=== PATIENT | female | born 1980 | race Caucasian/White ===

== ENCOUNTER 2016-06-08 16:00 | Emergency (ER) | payer OTHER, MEDICARE ==
[~2016-06-08] VITALS: Ht 170.2 cm; Wt 65.3 kg
--- NOTE | 2016-06-08 16:56 | ED GI/GU/ABDOMINAL COMPLAINT ---
History of Present Illness General Chief Complaint: Abdominal Pain/Flank Pain Stated Complaint: ABD, V/N Source: patient Exam Limitations: no limitations Vital Signs & Intake/Output Vital Signs & Intake/Output Vital Signs Date Time Temp Pulse Resp B/P Pulse O2 O2 Flow FiO2 Ox Delivery Rate 06/09 2023 97.6 75 18 101/62 100 Room Air 06/08 1828 Room Air 06/08 1813 97.5 78 16 105/74 96 Room Air 06/08 1607 98.7 96 16 110/72 96 Room Air Allergies Coded Allergies: sumatriptan (From IMITREX) (ANAPHYLAXIS 06/08/16) Reconcile Medications Carisoprodol 350 MG TABLET 1 TAB PO BIDP PRN MUSCLE RELAXER (Reported) Clonazepam 1 MG TABLET 1 TAB PO 4XDP PRN ANXIETY (Reported) Diclofenac Sodium (Voltaren) 1 % GEL..GRAM. 1 MEI TOP PRN PAIN (Reported) apply to affected area(s) Ergocalciferol (Vitamin D2) (Vitamin D2) 50,000 UNIT CAPSULE 1 CAP PO QSUN SUPPLEMENT (Reported) Ketorolac Tromethamine 10 MG TABLET 1 TAB PO TID PRN PAIN Ondansetron HCl (Zofran) 4 MG TABLET 1 TAB PO Q6-8P PRN NAUSEA Oxycodone HCl/Acetaminophen (Oxycodon-Acetaminophen 2.5-325) 2.5 MG-325 MG TABLET 1-2 TAB PO Q6H PRN PAIN (Reported) Tramadol HCl 50 MG TABLET 1-2 TAB PO PRN PAIN (Reported) Triage Note: PT STATES SHE IS HAVING RIGHT SIDED LOWER ABD PAIN FOR THE PAST FEW DAYS. PT REPORTS VOMITING STATES SHE HAS PRESSURE IN HER STOMACH. Triage Nurses Notes Reviewed? yes ? N Is pt currently ? No Onset: Gradual Duration: constant Timing: recent history Quality/Severity: sharpness, severe, stabbing Severity Numbers: 8 Location: periumbilical Radiation: no radiation Activities at Onset: none HPI: Patient is a 38-year-old female with past medical history of CVA, brain tumor with craniectomy and chronic headaches and pain AND OVARIAN CYSTS currently on maintenance medications of narcotics who presents emergency room with a 2 day history of gradual onset of periumbilical sharp stabbing severe abdominal pain Patient states that yesterday she was intolerant of by mouth where she had a few episodes of nonbloody nonbilious emesis. Patient was able today to tolerate by mouth liquids however. Denies any fever chills chest pain back pain vaginal bleeding vaginal discharge dysuria and hematuria Last MENSTRAUL PERIOD Was 7 days ago (NAMRATA HAINES) Past History Travel History Traveled to [place] past 21 day No Medical History Any Pertinent Medical History? see below for history Neurological: CVA Renal: UTI Cancer(s): BRAIN TUMORS X3 Surgical History Surgical History: cholecystectomy, LAPAROSCOPIC OVARIAN CYST REMOVAL Psychosocial History What is your primary language Paraguayan Tobacco Use: Current Daily Use Daily Tobacco Use Amount/Type: => 5 Cigarettes daily ETOH Use: denies use Illicit Drug Use: denies illicit drug use Family History Hx Contributory? No (NAMRATA HAINES) Review of Systems Review of Systems Constitutional: Reports: no symptoms. EENTM: Reports: no symptoms. Respiratory: Reports: no symptoms. Cardiovascular: Reports: no symptoms. GI: Reports: see HPI, abdominal pain, nausea. Genitourinary: Reports: no symptoms. Musculoskeletal: Reports: no symptoms. Skin: Reports: no symptoms. Neurological/Psychological: Reports: no symptoms. Hematologic/Endocrine: Reports: no symptoms. Immunologic/Allergic: Reports: no symptoms. All Other Systems: Reviewed and Negative (NAMRATA HAINES) Physical Exam Physical Exam General Appearance: mild distress Gastrointestinal: normal bowel sounds, soft, MODERATE PERIUMBILICAL AND RIGHT LOWER QUADRANT POINT TENDERNESS Comments: HEENT: Normal EENT exam, Neck: Supple, no lymphadenopathy, normal range of motion without pain or tenderness Back: Nontender, no CVA tenderness. Cardiovascular: Regular rate and rhythms no murmurs rubs or gallops, normal JVP Respiratory: Chest nontender. No respiratory distress.breath sounds clear to auscultation bilaterally Extremity: No edema, no calf tenderness to palpation, normal and equal pulses. Neuro: Alert oriented x3, motor sensory normal, Skin: No appreciable rash on exposed skin, skin is warm and dry. Psych: Mood and affect is normal, memory and judgment is normal. Core Measures ACS in differential dx? No Severe Sepsis Present: No Septic Shock Present: No (NAMRATA HAINES) Progress Differential Diagnosis: AAA, AMI, appendicitis, biliary colic, bowel obstruction , colon cancer, cholecystitis, diverticulitis, ectopic , endometritis, esophageal varices, gastritis, hepatitis, hernia, hemorrhoids, ischemic bowel, inflamm bowel dis, intrauterine , kidney stone, [place] tear, ovarian cyst, ovarian torsion, pancreatitis, PID/cervicitis, peptic ulcer, PUD/ GERD, perforated viscous, SBO, threatened AB, UTI/pyelo Plan of Care: Orders Procedure Date/time Status URINE 06/08 1704 Complete URINALYSIS 06/08 1704 Complete LIPASE 06/08 1704 Complete LACTIC ACID 06/08 1704 Complete COMPREHENSIVE METABOLIC PANEL 06/08 1704 Complete CBC WITHOUT DIFFERENTIAL 06/08 1704 Complete AMYLASE 06/08 1704 Complete Laboratory Tests 06/08/162004: Lactic Acid Cancelled 06/08/161724: Anion Gap 13, Estimated GFR > 60, BUN/Creatinine Ratio 8.6, Glucose 80, Lactic Acid 1.5, Calcium 9.7, Total Bilirubin 0.7, AST 59 H, ALT 49, Alkaline Phosphatase 50, Total Protein 7.7, Albumin 4.7, Globulin 3.0, Albumin/Globulin Ratio 1.6, Amylase 33, Lipase 57, CBC w Diff NO MAN DIFF REQ, RBC 4.62, MCV 92.0 , MCH 30.4, RDW 13.0, MPV 8.2, Gran % 71.8, Lymphocytes % 21.8, Monocytes % 4.9, Eosinophils % 0.8, Basophils % 0.7, Absolute Granulocytes 4.5, Absolute Lymphocytes 1.4, Absolute Monocytes 0.3, Absolute Eosinophils 0, Absolute Basophils 0, PUBS MCHC 33.0 06/08/161699: Urine Color YEL, Urine Clarity CLEAR, Urine pH 6.5, Ur Specific [place] <= 1.005 , Urine Protein NEG, Urine Ketones NEG, Urine Nitrite NEG, Urine Bilirubin NEG, Urine Urobilinogen 0.2, Ur Leukocyte Esterase NEG, Ur Microscopic EXAM NOT REQUIRED, Urine Hemoglobin NEG, Urine Glucose NEG, Urine Test NEGATIVE Patient was evaluated on multiple occasions and noted to have complete resolution of nausea however patient still had persistent pain after morphine, repeat morphine was administered with resolution of pain however prior to discharge pain return to which Dilaudid was administered. I discussed CT scan findings with the radiologist for concerns of right adnexal mass however no signs of torsion noted at this time. Patient was able tolerate by mouth upon discharge patient upon discharge was in no apparent distress was given copies of CT scan and blood work and was strongly advised to follow-up with outsourced [employer] DRIVER from [place] (SARINA URIOSTEGUI,NAMRATA) Diagnostic Imaging: Viewed by Me: Radiology Read. Radiology Impression: SEE COMMENTS Initial ED EKG: none Comments: PATIENT: MAINE JAVIER PRESENT AGE: 35 PATIENT ACCOUNT NO: [id number] : 79 LOCATION: [facility] ORDERING PHYSICIAN: NAMRATA URIOSTEGUI SERVICE DATE: 06/08/16 EXAM TYPE: CAT - CT ABD & PELVIS W IV CONTRAST EXAMINATION: CT ABDOMEN AND PELVIS WITH CONTRAST CLINICAL INFORMATION: 35-year-old female presented with right lower quadrant and periumbilical pain. COMPARISON: None TECHNIQUE: Multidetector volumetric imaging was performed of the abdomen and pelvis before and after the IV administration of 94 mL of Optiray 320 intravenous contrast. Sagittal and coronal reformatted images were obtained on the technologist's workstation. DLP: 281.78 mGy-cm FINDINGS: LUNG BASES: The visualized lung bases are unremarkable. LIVER, GALLBLADDER, AND BILIARY TREE: The liver is normal in size, shape, and attenuation. There is a subcapsular focal hypodensity present around the falciform ligament, most consistent with focal fatty infiltration (see the wright images The gallbladder is surgically absent. Mild central intrahepatic biliary ductal prominence is present likely related to surgically absent gallbladder. Mild extrahepatic biliary ductal prominence is also noted possibly related to cholecystectomy as well. PANCREAS: Unremarkable. SPLEEN: Unremarkable. ADRENAL GLANDS: Unremarkable. KIDNEYS AND URETERS: The kidneys are normal in size, shape, and attenuation. No hydronephrosis, hydroureter, or calculi seen. No perinephric stranding. BLADDER: Unremarkable. GASTROINTESTINAL TRACT: The small and large bowel are unremarkable. There is a tubular air-containing curvilinear structure identified at the level of the pelvic inlet to the right of the midline (see the wright images, likely represent normal appearing appendix. Inferior to the appendix, at the level of the midpelvis, at the midline extending to the right, there is a heterogeneous ill-defined hypodensity present which may represent a right adnexal mass. Measures approximate 4.7 x 4.0 cm. ABDOMINAL WALL: No significant hernia is appreciated. LYMPH NODES: Normal. VASCULAR: Unremarkable. PELVIC VISCERA: As described already there is a 4.7 x 4.0 cm right adnexal hypodensity present which likely represent an adnexal cystic mass. The left ovary is not visualized. The uterus is slightly displaced to the left and posteriorly. There is no free fluid and/or free air present. Follow-up pelvic ultrasound is recommended. OSSEOUS STRUCTURES: Mild anterior wedging of the visualized lower thoracic vertebrae is noted. No suspicious osseous lytic abnormality. IMPRESSION: 1. No acute intra-abdominal and/or intrapelvic pathology is present. 2. 4.7 cm maximum dimension hypodense mass is noted within the right mid hemipelvis, likely represent an adnexal cystic mass. Follow-up pelvic ultrasound is recommended for further full detail evaluation. 3. Likely focal fatty replacement within the left lobe of the liver around the falciform ligament. 4. Surgically absent gallbladder and mild central and extrahepatic biliary ductal prominence likely related to cholecystectomy. This critical result was discussed with GILA Velasquez at 7:02 PM on 06/08/2016 and it was ascertained that the content and urgency of the report was understood at the time of direct communication. (NAMRATA HAINES) Departure Departure Disposition: HOME OR SELF CARE Condition: Stable Clinical Impression Primary Impression: Abdominal pain Secondary Impressions: Adnexal mass Referrals: PATIENT HAS NO PRIMARY CARE DR (PCP/Family) Additional Instructions: As discussed continue home medications as directed and your pain medication Begin the prescription a ketorolac for pain and inflammation Begin the prescription of Zofran for nausea Please provide your [employer] DRIVER with the copies of blood work in CT scan for follow- up, tomorrow please follow-up with your established R[employer]AL [employer] DRIVER. If symptoms worsen return to emergency room. Per prescription is waiting at [facility] pharmacy Departure Forms: Customer Survey General Discharge Information Prescriptions: Current Visit Scripts Ketorolac Tromethamine 1 TAB PO TID PRN PAIN #15 TAB Ondansetron HCl (Zofran) 1 TAB PO Q6-8P PRN NAUSEA #15 TAB (NAMRATA HAINES) PA/[employer] Co-Sign Statement Statement: ED Attending supervision documentation- [] I saw and evaluated the patient. I have also reviewed all the pertinent lab results and diagnostic results. I agree with the findings and the plan of care as documented in the PA's/[employer]'s documentation. [x] I have reviewed the ED Record and agree with the PA's/[employer]'s documentation. [] Additions or exceptions (if any) to the PAs/[employer]'s note and plan are summarized below: [] (SUSHMA PERAZA,RON Garcia)
[2016-06-08 17:47] LABS: ABSOLUTE BASOPHIL COUNT 0 /CUMM (0.0-0.2); ABSOLUTE EOSINOPHIL COUNT 0 /CUMM (0.0-0.7); ABSOLUTE GRANULOCYTE CT 4.5 /CUMM (1.4-6.5); ABSOLUTE LYMPH COUNT 1.4 /CUMM (1.2-3.4); ABSOLUTE MONOCYTE COUNT 0.3 /CUMM (0.10-0.60); BASOPHIL % 0.7 % (0.0-2.0); EOSINOPHIL % 0.8 % (0-5); GRANULOCYTE % 71.8 % (42.2-75.2); HEMATOCRIT 42.6 % (37-47); MEAN CORPUSCULAR HGB 30.4 PG (27.0-31.0); MEAN PLATELET VOLUME 8.2 FL (7.4-10.4); PLATELET COUNT 238 /CUMM (130-400); RED BLOOD CELL CT 4.62 /CUMM (4.20-5.40); WHITE BLOOD CELL COUNT 6.2 /CUMM (4.8-10.8)
--- NOTE | 2016-06-08 19:08 | CT SCAN REPORT ---
EXAMINATION: CT ABDOMEN AND PELVIS WITH CONTRAST CLINICAL INFORMATION: 35-year-old female presented with right lower quadrant and periumbilical pain. COMPARISON: None TECHNIQUE: Multidetector volumetric imaging was performed of the abdomen and pelvis before and after the IV administration of 94 mL of Optiray 320 intravenous contrast. Sagittal and coronal reformatted images were obtained on the technologist's workstation. DLP: 281.78 mGy-cm FINDINGS: LUNG BASES: The visualized lung bases are unremarkable. LIVER, GALLBLADDER, AND BILIARY TREE: The liver is normal in size, shape, and attenuation. There is a subcapsular focal hypodensity present around the falciform ligament, most consistent with focal fatty infiltration (see the wright images The gallbladder is surgically absent. Mild central intrahepatic biliary ductal prominence is present likely related to surgically absent gallbladder. Mild extrahepatic biliary ductal prominence is also noted possibly related to cholecystectomy as well. PANCREAS: Unremarkable. SPLEEN: Unremarkable. ADRENAL GLANDS: Unremarkable. KIDNEYS AND URETERS: The kidneys are normal in size, shape, and attenuation. No hydronephrosis, hydroureter, or calculi seen. No perinephric stranding. BLADDER: Unremarkable. GASTROINTESTINAL TRACT: The small and large bowel are unremarkable. There is a tubular air-containing curvilinear structure identified at the level of the pelvic inlet to the right of the midline (see the wright images, likely represent normal appearing appendix. Inferior to the appendix, at the level of the midpelvis, at the midline extending to the right, there is a heterogeneous ill-defined hypodensity present which may represent a right adnexal mass. Measures approximate 4.7 x 4.0 cm. ABDOMINAL WALL: No significant hernia is appreciated. LYMPH NODES: Normal. VASCULAR: Unremarkable. PELVIC VISCERA: As described already there is a 4.7 x 4.0 cm right adnexal hypodensity present which likely represent an adnexal cystic mass. The left ovary is not visualized. The uterus is slightly displaced to the left and posteriorly. There is no free fluid and/or free air present. Follow-up pelvic ultrasound is recommended. OSSEOUS STRUCTURES: Mild anterior wedging of the visualized lower thoracic vertebrae is noted. No suspicious osseous lytic abnormality. IMPRESSION: 1. No acute intra-abdominal and/or intrapelvic pathology is present. 2. 4.7 cm maximum dimension hypodense mass is noted within the right mid hemipelvis, likely represent an adnexal cystic mass. Follow-up pelvic ultrasound is recommended for further full detail evaluation. 3. Likely focal fatty replacement within the left lobe of the liver around the falciform ligament. 4. Surgically absent gallbladder and mild central and extrahepatic biliary ductal prominence likely related to cholecystectomy. This critical result was discussed with GILA Velasquez at 7:02 PM on 06/08/2016 and it was ascertained that the content and urgency of the report was understood at the time of direct communication.
[2016-06-08] MEDS ORDERED: KETOROLAC TROME10 M1 PO (19:37)
[2016-06-08] MEDS ORDERED: ZOFRAN4 M2 PO (19:37)
[2016-06-08] MEDS ORDERED: OXYCODON-ACETA1 EACH PO (19:57)
[2016-06-08] MEDS ORDERED: VITAMIN D250000 UNIT PO (19:58)
[2016-06-08] MEDS ORDERED: CLONAZEPAM1 M2 PO (19:58)
[2016-06-08] MEDS ORDERED: CARISOPRODOL350 M1 PO (19:59)
[2016-06-08] MEDS ORDERED: TRAMADOL HCL50 M1 PO (19:59)
[2016-06-08] MEDS ORDERED: VOLTAREN100 GM TOP (20:00)
[2016-06-08 20:24] VITALS: BP 101/62
== END 2016-06-08 21:14 ==
LOC: ERH 16:00
PROVIDERS: Physician Assistant
DX: N85.9 Noninflammatory disorder of uterus, unspecified (principal); R10.33 Periumbilical pain
CPT/HCPCS: 74177; 81003; 81025; 96361; 96374; 96375; 96376; J1885; J2405

== ENCOUNTER 2017-05-18 17:05 | Emergency (ER) | payer OTHER, MEDICARE ==
[~2017-05-18] VITALS: Ht 172.7 cm; Wt 61.2 kg
[~2017-05-18 17:05] MED LIST: CARISOPRODOL350 M1 PO; CLONAZEPAM1 M2 PO; KETOROLAC TROME10 M1 PO; OXYCODON-ACETA1 EACH PO; TRAMADOL HCL50 M1 PO; VITAMIN D250000 UNIT PO; VOLTAREN100 GM TOP; ZOFRAN ODT4 M1 SL; ZOFRAN4 M2 PO
[2017-05-18 17:53] LABS: ABSOLUTE BASOPHIL COUNT 0.1 /CUMM (0.0-0.2); ABSOLUTE EOSINOPHIL COUNT 0.1 /CUMM (0.0-0.7); ABSOLUTE GRANULOCYTE CT 5.5 /CUMM (1.4-6.5); ABSOLUTE LYMPH COUNT 1.4 /CUMM (1.2-3.4); ABSOLUTE MONOCYTE COUNT 0.5 /CUMM (0.10-0.60); BASOPHIL % 0.9 % (0.0-2.0); EOSINOPHIL % 0.7 % (0-5); GRANULOCYTE % 73.5 % (42.2-75.2); HEMATOCRIT 43.6 % (37-47); MEAN CORPUSCULAR HGB 30.4 PG (27.0-31.0); MEAN CORPUSCULAR HGB CONC 33.3 G/DL (33.0-37.0); MEAN CORPUSCULAR VOLUME 91.3 FL (81.0-99.0); MEAN PLATELET VOLUME 7.5 FL (7.4-10.4); PLATELET COUNT 240 /CUMM (130-400); RBC DISTRIBUTION WIDTH 13.5 % (11.5-14.5); RED BLOOD CELL CT 4.78 /CUMM (4.20-5.40); WHITE BLOOD CELL COUNT 7.5 /CUMM (4.8-10.8)
[2017-05-18 18:02] LABS: PT 12.1 SEC (9.4-12.5)
--- NOTE | 2017-05-18 19:28 | ED CARDIAC/CP/PALPITATIONS ---
History of Present Illness General Chief Complaint: Chest Pain Stated Complaint: CP X4 DAYS AGO Source: patient Exam Limitations: no limitations Vital Signs & Intake/Output Vital Signs & Intake/Output Vital Signs Date Time Temp Pulse Resp B/P B/P Pulse O2 O2 Flow FiO2 Mean Ox Delivery Rate 05/18 2110 75 18 101/67 100 Room Air 05/18 1939 75 18 97/58 100 Room Air 05/18 1741 98.2 73 16 123/87 98 Room Air Room Air ED Intake and Output 05/19 0000 05/18 1200 Intake Total 1000 Output Total Balance 1000 Intake, IV 1000 Intake, Oral 0 Patient 135 lb Weight Allergies Coded Allergies: sumatriptan (From IMITREX) (ANAPHYLAXIS 05/18/17) Reconcile Medications Carisoprodol 350 MG TABLET 1 TAB PO BIDP PRN MUSCLE RELAXER (Reported) Clonazepam 1 MG TABLET 1 TAB PO 4XDP PRN ANXIETY (Reported) Diclofenac Sodium (Voltaren) 1 % GEL..GRAM. 1 MEI TOP PRN PAIN (Reported) apply to affected area(s) Ergocalciferol (Vitamin D2) (Vitamin D2) 50,000 UNIT CAPSULE 1 CAP PO QSUN SUPPLEMENT (Reported) Ketorolac Tromethamine 10 MG TABLET 1 TAB PO TID PRN PAIN Ondansetron (Zofran Odt) 4 MG TAB.RAPDIS 1 TAB SL TID PRN NAUSEA Ondansetron HCl (Zofran) 4 MG TABLET 1 TAB PO Q6-8P PRN NAUSEA Oxycodone HCl/Acetaminophen (Oxycodon-Acetaminophen 2.5-325) 2.5 MG-325 MG TABLET 1-2 TAB PO Q6H PRN PAIN (Reported) Tramadol HCl 50 MG TABLET 1-2 TAB PO PRN PAIN (Reported) Triage Note: PT TO RM 9 FOR CHEST PAIN FOR 3-4. SHARP AND SHOOTING, WHEN THOSE PA LEAVE SHE FEELS PRESSURE. PT HAS NO CARDIAC HISTORY. DENIES FEVERS OR COUGH. PT STATES SHE FEELS FOGGY AND SLOWER. PT HAS PAINS TO RIGHT SIDE OF HEAD WHERE SHE HAD BRAIN SURGERY. PT STTES SHE FEEL NAUSEOUS AT TIMES Triage Nurses Notes Reviewed? yes Onset: Gradual Duration: day(s): (4-5), changing over time, continues in ED, getting worse Timing: single episode today Quality/Severity: moderate, sharp Location: left chest Radiation: no radiation Activities at Onset: none Prior Chest Pain/Card Workup: no prior chest pain, no prior cardiac workup Modifying Factors: Worsens With: palpation. Nitro Today/Relief: no nitro taken today Aspirin Today: 81 mg x 1, provided at home Associated Symptoms: headache, nausea/vomiting LMP (ages 10-50): unknown : No Patient currently breastfeeds: No HPI: 36-year-old female past medical history of multiple brain surgeries, CVA presents for evaluation of chest pain and headache. Patient states that chest pain started for 5 days ago. It is located on the left side of the chest and does not radiate described as a sugar that is intermittent and sharp. It is not worse on exertion. It started at rest. It is associated with some shortness of breath and headache. Headache is located on the right side of her head near the area where she had brain surgery. There was no head trauma no changes in vision. She does report feeling in a "fog". She denies any fevers, chills, abdominal pain, back pain, hemoptysis, lower extremity edema. She's been taking Tylenol ibuprofen tramadol and Soma without any improvement. She rates the pain in her chest as a 10 out of 10. She's never had this before. She denies any personal history of heart disease but does report a family history in her grandparents of early MIs. Patient does report that she has Percocet at home but has not yet taken it. (Heath Ibarra) Past History Travel History Traveled to [place] past 21 day No Medical History Any Pertinent Medical History? see below for history Neurological: CVA, BRAIN SX EENT: NONE Cardiovascular: NONE Respiratory: NONE Gastrointestinal: NONE Hepatic: NONE Renal: NONE Musculoskeletal: NONE Psychiatric: NONE Endocrine: NONE Blood Disorders: NONE Cancer(s): BRAIN TUMORS X3 Surgical History Surgical History: cholecystectomy, LAPAROSCOPIC OVARIAN CYST REMOVAL Psychosocial History What is your primary language [place] Tobacco Use: Current Daily Use Daily Tobacco Use Amount/Type: => 5 Cigarettes daily ETOH Use: denies use Illicit Drug Use: denies illicit drug use Family History Hx Contributory? No (Heath Ibarra) Review of Systems Review of Systems Constitutional: Reports: no symptoms. EENTM: Reports: no symptoms. Respiratory: Reports: see HPI, short of breath. Cardiovascular: Reports: see HPI, chest pain. GI: Reports: no symptoms. Genitourinary: Reports: no symptoms. Musculoskeletal: Reports: no symptoms. Skin: Reports: no symptoms. Neurological/Psychological: Reports: headache. Hematologic/Endocrine: Reports: no symptoms. Immunologic/Allergic: Reports: no symptoms. All Other Systems: Reviewed and Negative (Heath Ibarra) Physical Exam Physical Exam General Appearance: well developed/nourished, no apparent distress, alert, awake , thin Head: atraumatic, normal appearance Eyes: Bilateral: normal appearance, PERRL, EOMI. Ears, Nose, Throat: normal pharynx, normal ENT inspection, hearing grossly normal Neck: normal inspection, supple, full range of motion Respiratory: normal breath sounds, no respiratory distress, lungs clear, chest wall tenderness palpation of the left chest Cardiovascular: regular rate/rhythm, normal peripheral pulses Peripheral Pulses: 2+ radial (R), 2+ radial (L) Gastrointestinal: soft, non-tender Back: normal inspection, normal range of motion, no vertebral tenderness Extremities: normal inspection, normal range of motion, no edema Neurologic/Psych: no motor/sensory deficits, awake, alert, oriented x 3, normal gait, normal mood/affect, engineering associate II-XII nml as tested, cerebellar testing is intact , negative Romberg Skin: intact, normal color, warm/dry Core Measures ACS in differential dx? Yes No ASA d/t ruled out CVA/TIA Diagnosis No Sepsis Present: No Sepsis Focused Exam Completed? No (Heath Ibarra) Progress Differential Diagnosis: AMI, aortic dissection, pancreatitis, pericarditis, pneumonia, pulmonary embolism, PUD/GERD, PVCs/PACs, rib fracture, unstable angina Plan of Care: Orders Procedure Date/time Status TROPONIN LEVEL 05/18 2100 Complete EKG 05/18 2100 Active URINE 05/18 1851 Complete URINE DRUG SCREEN FOR ER ONLY 05/18 1851 Complete URINALYSIS 05/18 1851 Complete D-DIMER 05/18 1737 Complete Telemetry/Claims Adjustor 05/18 1729 Active TROPONIN LEVEL 05/18 1710 Complete PROTHROMBIN TIME 05/18 1710 Complete HUMAN BETA HCG SCREEN 05/18 1710 Complete COMPREHENSIVE METABOLIC PANEL 05/18 1710 Complete CBC WITHOUT DIFFERENTIAL 05/18 1710 Complete EKG 05/18 1706 Active Current Medications Sig/Aditi Start time Last Medication Dose Stop Time Status Admin Morphine Sulfate 0 .STK-MED ONE 05/18 1925 CAN (MORPHINE SULFATE) Morphine Sulfate 4 MG ONCE ONE 05/18 1914 CAN (MORPHINE SULFATE) 05/19 1915 Laboratory Tests 05/18/17 2105: Troponin I < 0.01 05/18/171909: Urine Opiates Screen < 100, Methadone Screen < 40, Barbiturate Screen < 60, Ur Phencyclidine Scrn < 6.00, Amphetamines Screen < 100, U Benzodiazepines Scrn 101 , Urine Cocaine Screen < 50, Urine Cannabis Screen > 80.00 H, Urine Color YEL, Urine Clarity HAZY H, Urine pH 6.0, Ur Specific [place] <= 1.005, Urine Protein NEG, Urine Ketones NEG, Urine Nitrite NEG, Urine Bilirubin NEG, Urine Urobilinogen 0.2, Ur Leukocyte Esterase NEG, Ur Microscopic SEDIMENT EXAMINED, Urine RBC 1-3, Ur Epithelial Cells FEW, Urine Mucus FEW, Urine Hemoglobin MOD H , Urine Glucose NEG, Urine Test NEGATIVE 05/18/171736: Anion Gap 12, Estimated GFR > 60, BUN/Creatinine Ratio 11.4, Glucose 90, Calcium 9.8, Total Bilirubin 0.9, AST 161 H, ALT 104 H, Alkaline Phosphatase 58, Troponin I < 0.01, Total Protein 7.6, Albumin 4.7, Globulin 2.9, Albumin/ Globulin Ratio 1.6, Total Beta HCG NEGATIVE, PT 12.1, INR 1.11, D-Dimer High Sensitivty 736 H, CBC w Diff NO MAN DIFF REQ, RBC 4.78, MCV 91.3, MCH 30.4, MCHC 33.3, RDW 13.5, MPV 7.5, Gran % 73.5, Lymphocytes % 18.4 L, Monocytes % 6.5, Eosinophils % 0.7, Basophils % 0.9, Absolute Granulocytes 5.5, Absolute Lymphocytes 1.4, Absolute Monocytes 0.5, Absolute Eosinophils 0.1, Absolute Basophils 0.1 05/18/17 1729: D-Dimer High Sensitivty Cancelled Patient seen and evaluated. She has pain in the left side of her chest and headache. The chest pain is reproducible with palpation. She is a current every day smoker but denies any drug use. Patient's blood pressure runs low normally according to her. Currently is 100s over 60s. Patient was given a liter of normal saline and IV Tylenol initially will check basic labs including d-dimer and troponin. EKG is stable. D-dimer is elevated a CTA will be obtained. Patient is reporting continued pain in her chest and is requesting IV Dilaudid. She was given 2 mg of IV morphine. Her remaining blood work is within normal limits. CTA is negative for aortic dissection or pulmonary embolism. A repeat EKG and troponin are negative and unchanged patient does report some improvement in her pain with IV morphine. Patient will be discharged home with cardiology follow- up. Advise rest and avoid excessive physical activity apply heating pad. Continue Tylenol ibuprofen Soma and tramadol as needed for pain. Percocet for severe pain only this may cause drowsiness. Follow-up with primary care doctor and storm door maker. Discussed return precautions patient appears well she agrees with plan. Diagnostic Imaging: Viewed by Me: CT Scan. Discussed w/RAD: CT Scan. Radiology Impression: PATIENT: MAINE JAVIER PRESENT AGE: 36 PATIENT ACCOUNT NO: [id number] : 79 LOCATION: [facility] ORDERING PHYSICIAN: Heath URIOSTEGUI SERVICE DATE: 05/18/17 EXAM TYPE: CAT - CT HEAD WO IV CONTRAST EXAMINATION: CT HEAD WITHOUT CONTRAST CLINICAL INFORMATION: Headache. History of brain surgery. COMPARISON: 11/22/2016. TECHNIQUE: Contiguous axial imaging was performed from the skull base to vertex without intravenous administration of contrast. DLP: 620 mGy-cm FINDINGS: There are stable changes after right lateral suboccipital craniectomy with subjacent right lateral cerebellar encephalomalacia. No new attenuation abnormalities within the brain. There is no hemorrhage, edema, mass effect, hydrocephalus, extra-axial collection, shift of the normally midline structures, or evolving territorial infarct. The ventricles and sulci are normal in caliber and configuration. There are scattered coarse calcifications in the premedullary, prepontine, and right ambient cisterns as well as the suprasellar cisterns which may be vascular in etiology and are unchanged. No acute osseous abnormality. The imaged paranasal sinuses, upper nasal cavity and upper nasopharynx, and middle ear cavities are clear. There is a stable small area of nodular opacification in the posterior aspect of the right mastoid air cells. Otherwise the mastoid air cells are clear. The temporomandibular joints articulate normally. The orbits are unremarkable. There is minor scarring in the right frontal scalp, improved from the prior. IMPRESSION: No acute intracranial pathology. Stable postsurgical changes in the right posterior fossa. DICTATED BY: Mihaela Morgan MD DATE/TIME DICTATED:05/18/172017 PROGRAM MANAGEMENT PROFESSIONAL:KOBE DATE/TIME TRANSCRIBED:2017 CONFIDENTIAL, DO NOT COPY WITHOUT APPROPRIATE AUTHORIZATION. < Electronically signed in Other Vendor System> SIGNED BY: Mihaela Morgan MD 05/18/172026, PATIENT: MAINE JAVIER PRESENT AGE: 36 PATIENT ACCOUNT NO: [id number] : 79 LOCATION: [facility] ORDERING PHYSICIAN: Heath URIOSTEGUI SERVICE DATE: 05/18/17 EXAM TYPE: CAT - CTA CHEST- PULMONARY EMBOLISM EXAMINATION: CT ANGIOGRAM OF THE CHEST WITH AND WITHOUT CONTRAST (CT PULMONARY ANGIOGRAM FOR PE) CLINICAL INFORMATION: Chest pain and shortness of breath COMPARISON: None TECHNIQUE: Prior to contrast administration , noncontrast localization images were obtained. Subsequently, multidetector volumetric imaging was performed from the thoracic inlet to below the diaphragms following the administration of 95 mL Optiray 320 intravenous contrast. The patient was scanned with the right arm down, creating some streak artifact. No contrast reaction reported. Sagittal, coronal, and MIP oblique sagittal reformatted images were obtained on the CT workstation, uploaded to PACS, and reviewed. Total exam dose-length product 227 mGy-cm. FINDINGS: QUALITY OF STUDY/ CONTRAST BOLUS: Satisfactory PULMONARY ARTERIES: No central or segmental pulmonary emboli. THORACIC AORTA: No aneurysm or dissection. LUNG: No focal consolidation, nodules or masses. The central airways are patent without endoluminal obstruction. PLEURA: No pleural effusion or pneumothorax. MEDIASTINUM: Normal heart size. No pericardial effusion. No hilar or mediastinal lymphadenopathy. No evidence of septal bowing or right heart strain. CHEST WALL/ AXILLA: No axillary or internal mammary lymphadenopathy. The right axilla is quite obscured by streak artifact. OSSEOUS STRUCTURES: No acute osseous abnormality. There is exaggeration of the normal thoracic kyphosis. Minor multilevel spondylosis. UPPER ABDOMEN: Clips from prior cholecystectomy. No reflux of contrast into the hepatic veins to suggest elevated right heart pressures. IMPRESSION: No evidence of central or segmental pulmonary embolism. No acute intrathoracic abnormality. VTE: negative DICTATED BY: Mihaela Morgan MD DATE/TIME DICTATED:05/18/172023 PROGRAM MANAGEMENT PROFESSIONAL:KOBE DATE/TIME TRANSCRIBED:05/18/172023 CONFIDENTIAL, DO NOT COPY WITHOUT APPROPRIATE AUTHORIZATION. <Electronically signed in Other Vendor System> Initial ED EKG: normal sinus rhythm, no ST T wave changes (Heath Ibarra) Departure Departure Disposition: HOME OR SELF CARE Condition: Stable Clinical Impression Primary Impression: Chest pain Qualifiers: Chest pain type: unspecified Qualified Code: R07.9 - Chest pain, unspecified Referrals: Patient Has No Primary Care Dr (PCP/Family) Aliya PERAZA PHD,Eran Garay Additional Instructions: Continue to use ibuprofen and Soma and Percocet as needed for pain. Make a follow-up appointment with her primary care doctor and provided storm door maker as soon as possible. Monitor symptoms closely return with any concerns. Departure Forms: Customer Survey General Discharge Information (Heath Ibarra) PA/SQUARING SHEAR OPERATOR Co-Sign Statement Statement: ED Attending supervision documentation- [] I saw and evaluated the patient. I have also reviewed all the pertinent lab results and diagnostic results. I agree with the findings and the plan of care as documented in the PA's/SQUARING SHEAR OPERATOR's documentation. [X] I have reviewed the ED Record and agree with the PA's/SQUARING SHEAR OPERATOR's documentation. [] Additions or exceptions (if any) to the PAs/SQUARING SHEAR OPERATOR's note and plan are summarized below: [] (Anjali PERAZA,Naman Tapia) Critical Care Note Critical Care Note Critical Care Time: non-applicable (Heath Ibarra)
--- NOTE | 2017-05-18 20:27 | CT SCAN REPORT ---
EXAMINATION: CT HEAD WITHOUT CONTRAST CLINICAL INFORMATION: Headache. History of brain surgery. COMPARISON: 11/22/2016. TECHNIQUE: Contiguous axial imaging was performed from the skull base to vertex without intravenous administration of contrast. DLP: 620 mGy-cm FINDINGS: There are stable changes after right lateral suboccipital craniectomy with subjacent right lateral cerebellar encephalomalacia. No new attenuation abnormalities within the brain. There is no hemorrhage, edema, mass effect, hydrocephalus, extra-axial collection, shift of the normally midline structures, or evolving territorial infarct. The ventricles and sulci are normal in caliber and configuration. There are scattered coarse calcifications in the premedullary, prepontine, and right ambient cisterns as well as the suprasellar cisterns which may be vascular in etiology and are unchanged. No acute osseous abnormality. The imaged paranasal sinuses, upper nasal cavity and upper nasopharynx, and middle ear cavities are clear. There is a stable small area of nodular opacification in the posterior aspect of the right mastoid air cells. Otherwise the mastoid air cells are clear. The temporomandibular joints articulate normally. The orbits are unremarkable. There is minor scarring in the right frontal scalp, improved from the prior. IMPRESSION: No acute intracranial pathology. Stable postsurgical changes in the right posterior fossa.
--- NOTE | 2017-05-18 20:33 | CT SCAN REPORT ---
EXAMINATION: CT ANGIOGRAM OF THE CHEST WITH AND WITHOUT CONTRAST (CT PULMONARY ANGIOGRAM FOR PE) CLINICAL INFORMATION: Chest pain and shortness of breath COMPARISON: None TECHNIQUE: Prior to contrast administration, noncontrast localization images were obtained. Subsequently, multidetector volumetric imaging was performed from the thoracic inlet to below the diaphragms following the administration of 95 mL Optiray 320 intravenous contrast. The patient was scanned with the right arm down, creating some streak artifact. No contrast reaction reported. Sagittal, coronal, and MIP oblique sagittal reformatted images were obtained on the CT workstation, uploaded to PACS, and reviewed. Total exam dose-length product 227 mGy-cm. FINDINGS: QUALITY OF STUDY/CONTRAST BOLUS: Satisfactory PULMONARY ARTERIES: No central or segmental pulmonary emboli. THORACIC AORTA: No aneurysm or dissection. LUNG: No focal consolidation, nodules or masses. The central airways are patent without endoluminal obstruction. PLEURA: No pleural effusion or pneumothorax. MEDIASTINUM: Normal heart size. No pericardial effusion. No hilar or mediastinal lymphadenopathy. No evidence of septal bowing or right heart strain. CHEST WALL/AXILLA: No axillary or internal mammary lymphadenopathy. The right axilla is quite obscured by streak artifact. OSSEOUS STRUCTURES: No acute osseous abnormality. There is exaggeration of the normal thoracic kyphosis. Minor multilevel spondylosis. UPPER ABDOMEN: Clips from prior cholecystectomy. No reflux of contrast into the hepatic veins to suggest elevated right heart pressures. IMPRESSION: No evidence of central or segmental pulmonary embolism. No acute intrathoracic abnormality. VTE: negative
[2017-05-18 21:10] VITALS: BP 101/67
== END 2017-05-18 22:19 ==
LOC: ERH 17:05
PROVIDERS: Physician Assistant Medical
DX: R07.9 Chest pain, unspecified (principal)
CPT/HCPCS: 80307; 81001; 81025; 93005; 93010; 96361; 96374; 96375; J0131